=== PATIENT | male | born 1960 | race Caucasian/White ===

== ENCOUNTER 2021-05-18 10:14 | Emergency (ER) | payer OTHER ==
[~2021-05-18] VITALS: Ht 172.7 cm; Wt 67.3 kg
[2021-05-18 10:39] VITALS: BP 145/78; TEMP 97.8
[2021-05-18] MEDS ORDERED: PERCOCET 325 MG1 TA2 PO ×2 (13:11)
[2021-05-18 13:28] VITALS: PULSE 78
[2021-05-19] MEDS ORDERED: PERCOCET 325 MG1 TA2 PO (11:19)
== END 2021-05-18 13:28 | disposition home or self-care (01) ==
LOC: COL.ER 10:14
DX: S62.610A Displaced fracture of proximal phalanx of right index finger, initial encounter for closed fracture (principal); F17.200 Nicotine dependence, unspecified, uncomplicated; Z98.890 Other specified postprocedural states; W54.1XXA Struck by dog, initial encounter

== ENCOUNTER 2021-07-26 20:27 | Emergency (ER) | payer OTHER ==
[~2021-07-26] VITALS: Ht 175.3 cm; Wt 76.4 kg
[~2021-07-26 20:27] MED LIST: PERCOCET 325 MG1 TA2 PO
[2021-07-26 20:34] VITALS: BP 145/76; PULSE 90; TEMP 98.4
[2021-07-26] MEDS ORDERED: AMOXICILLIN 8751 TAB PO (21:27)
== END 2021-07-26 21:43 | disposition home or self-care (01) ==
LOC: COL.ER 20:27
DX: S61.412A Laceration without foreign body of left hand, initial encounter (principal); Z28.310 Unvaccinated for COVID-19; W26.0XXA Contact with knife, initial encounter

== ENCOUNTER 2022-12-29 16:08 | Emergency (ER) | payer OTHER ==
[~2022-12-29] VITALS: Ht 152.4 cm; Wt 61.4 kg
[~2022-12-29 16:08] MED LIST changes: +AMOXICILLIN 8751 TAB PO; +ASPIRIN 32325 MG/TAB PO; +ASPIRIN 81M81 MG/TA2 PO; +MOTRIN 600600 MG/TAB PO; +PROTONIX 40MG T40 MG PO; +ROXICODONE 55 MG/TAB PO; +SUBOXONE 8 MG-21 TAB SL; +TYLENOL 500MG500 MG PO
[2022-12-29 17:14] LABS: BASO % 0.2 % (0.0-2.0); EOS # 0.1 K/mm3 (0.0-0.7); GRAN # 7.2 K/mm3 (1.4-6.5); GRAN % 83.1 % (42.2-75.2); HEMOGLOBIN 12.1 g/dl (13.5-18.0); LYMPH # 0.9 K/mm3 (1.2-3.4); LYMPH % 10.1 % (20.0-51.0); MEAN CELL VOLUME 91 fl (80.0-100.0); MEAN CORPUSCULAR HEMOGLOBIN 32 pg (27-31); MEAN CORPUSCULAR HGB CONC 35 g/dl (33.0-37.0); MEAN PLATELET VOLUME 9.2 fl (7.4-10.4); MONO # 0.5 K/mm3 (0.1-0.6); MONO % 5.3 % (1.7-9.3); PLATELET COUNT 260 K/mm3 (130-400); RED BLOOD COUNT 3.81 M/mm3 (4.20-5.60); REDCELL DISTRIBUTION WIDTH-CV 12.8 % (11.5-14.5)
[2022-12-29 17:16] LABS: HEMATOCRIT 34.5 % (42.0-52.0)
[2022-12-29 17:38] LABS: ERYTHROCYTE SEDIMENTATION RATE 14 mm/hr (0-30)
[2022-12-29 17:45] LABS: BILIRUBIN,TOTAL 0.5 mg/dL (0.2-1.2); C-REACTIVE PROTEIN 0.16 mg/dL (0.00-0.50); CALCIUM 9.6 mg/dL (8.4-10.2); CREATININE, serum 1.84 mg/dL (0.72-1.25); POTASSIUM 4.1 mmol/L (3.5-4.5); TOTAL PROTEIN 7.3 gm/dL (6.2-8.1)
[2022-12-29 21:06] VITALS: BP 115/85; PULSE 18
[2022-12-29] MEDS ORDERED: DOXYCYCLINE HY100 MG PO (21:06)
== END 2022-12-29 21:06 | disposition home or self-care (01) ==
LOC: COL.ER 16:08
PROVIDERS: Emergency Medicine
DX: M25.552 Pain in left hip (principal); R21 Rash and other nonspecific skin eruption; R94.4 Abnormal results of kidney function studies; Z87.891 Personal history of nicotine dependence
CPT/HCPCS: J7030

== ENCOUNTER 2023-10-24 09:45 | Inpatient (IN) | payer OTHER ==
[2023-10-24] VITALS (14 sets, daily range): BP systolic 116–126; BP diastolic 59–67; PULSE 86–90; TEMP 99–100.7; O2SAT 85–100
[~2023-10-24] VITALS: Ht 175.3 cm; Wt 69.2 kg
[~2023-10-24 09:45] MED LIST changes: +DOXYCYCLINE HY100 MG PO
[2023-10-24] MEDS ORDERED: NS 1,000 ML IV ONE ×2 (10:30→13:15)
[2023-10-24 10:48] LABS: ARTERIAL BLD GAS O2 SATURATION 99.3 % (92-100); ARTERIAL BLD GAS TCO2 CT 26.5; ARTERIAL BLOOD GAS BASE EXCESS 0.6 (-2-2); ARTERIAL BLOOD GAS HCO3 25.3 meq/L (22-26); ARTERIAL BLOOD GAS PCO2 40.7 mmHg (35-45); ARTERIAL BLOOD GAS pH 7.41 (7.35-7.45)
[2023-10-24 10:49] LABS: ARTERIAL BLOOD GAS PO2 192.4 mmHg (80-100)
[2023-10-24 11:19] LABS: ALBUMIN 3.6 g/dL (3.4-4.8); BILIRUBIN,TOTAL 0.8 mg/dL (0.2-1.2); CALCIUM 9.5 mg/dL (8.4-10.2); CREATININE, serum 3.15 mg/dL (0.72-1.25); POTASSIUM 4.9 mEq/L (3.5-4.5); TOTAL PROTEIN 8.3 g/dl (6.2-8.1)
[2023-10-24 12:07] LABS: BASO % 0.2 % (0.0-2.0); EOS % 0.2 % (0.0-4.0); GRAN # 11.7 K/mm3 (1.4-6.5); GRAN % 88.4 % (42.2-75.2); HEMATOCRIT 41.2 % (42.0-52.0); HEMOGLOBIN 13.5 g/dl (13.5-18.0); LYMPH # 0.9 K/mm3 (1.2-3.4); LYMPH % 6.9 % (20.0-51.0); MEAN CELL VOLUME 96 fl (80.0-100.0); MEAN CORPUSCULAR HEMOGLOBIN 31 pg (27-31); MEAN CORPUSCULAR HGB CONC 33 g/dl (33.0-37.0); MEAN PLATELET VOLUME 10.2 fl (7.4-10.4); MONO # 0.5 K/mm3 (0.1-0.6); MONO % 3.8 % (1.7-9.3); PLATELET COUNT 319 K/mm3 (130-400); RED BLOOD COUNT 4.31 M/mm3 (4.20-5.60); REDCELL DISTRIBUTION WIDTH-CV 12.8 % (11.5-14.5)
[2023-10-24 12:45] LABS: URINE APPEARANCE CLOUDY (CLEAR/HAZY); URINE BLOOD 3+ (NEGATIVE); URINE COLOR YELLOW (YELLOW); URINE GLUCOSE NEGATIVE (NEGATIVE); URINE KETONE TRACE (NEGATIVE); URINE NITRATE NEGATIVE (NEGATIVE); URINE PROTEIN(semi-quant) 2+ (NEGATIVE)
[2023-10-24 13:00] LABS: TRICYCLIC ANTIDEPRESS URINE NEGATIVE (NEGATIVE)
[2023-10-24 13:15] LABS: URINE BACTERIA RARE /hpf (NONE SEEN); URINE RBC 0-2 /hpf (0-2)
[2023-10-24] MEDS ORDERED: Acetaminophen 325 MG TAB PO PRN (13:15)
[2023-10-24] MEDS ORDERED: NS 1,000 ML IV SCH (13:15)
[2023-10-24] MEDS ORDERED: Ondansetron 4 MG/2 ML VIAL IV PRN (13:15)
[2023-10-24 13:16] LABS: COLLECTION METHOD CLEAN CATCH
[2023-10-24] MEDS ORDERED: Heparin 5,000 UNITS/ML 1 ML VIAL SQ SCH (16:00)
--- NOTE | 2023-10-24 17:15 | NUR ---
RN RECIEVED REPORT FROM ED RN SOTO. PT TO UNIT AND MOVED TO ICU BED. INITIAL ASSESMENT SHOWED PT NEURO AAOX4 AND ABLE TO FOLLOW COMMANDS. PT CLEAR THROUGH ALL LUNG FEILDS. CARDIAC SHOWS PT IN NSR WITH NO DEFICITS. EXTRMITIES SLIGHTLY COLD TO TOUCH WITH SLIGHTLY DELAYED CAP REFIL. SKIN TURGO ELASTIC SLIGHTLY DELAYED. SKIN NOTED TO HAVE MANY SMALL WOUNDS. RLE NOTED TO BE REDDENED AND PAINFUILL TO TOUCH SMALL WOUND ON MEDIAL PORTION OF LEG. ON BILATERAL THIGHS PATIENT NOTED TO HAVE MANY HEALING AND HEALED WOUNDS APROX 1- 2 CM IN SIZE. MANY SCARS FROM PICKING NOTED. PT HAS SEVERAL WOUNDS ON LEFT ARM APROX 1- 2 CM IN SIZE WELL. ON PT LEFT FACE WOUNDS IN STRAGES OF HEALING ARE NOTED WELL. ALL WOUNDS ARE SMALL AND ARE IN DIFFRENT STAGES OF HEALING. BACK OF PATIENT VISULIZED NO SKIN BREAKDOWN NOTED. PT HAS FOEY IN PLACE FROM ED WITH CLEAR YELLOW DRAINAGE. PT HAS NOT HAD BM BUT IS PASSING GAS ALL BOWEL SOUNDS NORMOACTIVE. PT NOTED ON HEENT EXAM TO BE MISSING FRONT TEETH AND OTHER TEETH SEEM TO BE DECAYING. PT STATES THAT HE LIVES IN A "BAD PLACE" BUT HE IS NOT ABLE TO GIVE ADRESS OF LOCATION. PT STATES THAT HOME IS FREQUENTLY BROKEN INTO. PT STATES THAT HE HAS BROUGHT PHONE FROM HOME. THIS RN AND ANOTHER RN SEARCHED BELONGINGS WHICH INCLUDED BACKPACK CHAMNGE OF CLOTHING, TOOTHBRUSH, NIGHTLIGHT, SHOES, WALL SENIOR LINUX ENGINEER PAPERWOR, SANDALS, WORN CLOTHING IN ED AND TRANSFORMER ASSEMBLER AND WALLET WITH SMALL AMMOUNTS OF SPICER. NO PHONE IS NOTED IN PATIENT BELONGINGS. VERIFIED WITH ANOTHER RN AND THEN CONFIRMED THAT PT DID NOT HAVE A PHONE IN THE ED. ED RN SEARCHED ED ROOM WITH NEWS VIDEO EDITOR AND NO PHONE WAS FOUND.
[2023-10-24 18:02] LABS: CALCIUM 8.4 mg/dL (8.4-10.2); CREATININE, serum 2.43 mg/dL (0.72-1.25); POTASSIUM 4.5 mEq/L (3.5-4.5)
--- NOTE | 2023-10-24 19:49 | NUR ---
PT RESTING WITH EYES CLOSED. RESPIRATIONS EVEN AND UNLABORED. NO SIGN OF DISTRESS AT THIS TIME. CONTINUE PLAN OF CARE.
[2023-10-25] VITALS (719 sets, daily range): BP systolic 93–119; BP diastolic 54–68; PULSE 80–101; TEMP 98.8–101.4; O2SAT 53–100
--- NOTE | 2023-10-25 | NUR ---
PT RESTING QUIETLY. PT HAD A SNACK OF MILK, PEANUT BUTTER, CRACKERS, & PUDDING. PT IS CALM AND COOPERATIVE. PT HAS NOT REQUESTED ANYTHING FOR PAIN. PT STABLE ON ROUNDS. NO SIGN OF DISTRESS AT THIS TIME.
--- NOTE | 2023-10-25 06:12 | NUR ---
PT STABLE ON ROUNDS. NO SIGN OF DISTRESS. RESPIRATIONS EVEN AND UNLABORED. VITAL SIGNS STABLE. CONTINUE PLAN OF CARE.
[2023-10-25 06:25] LABS: BASO % 0.2 % (0.0-2.0); EOS # 0.1 K/mm3 (0.0-0.7); GRAN # 10.3 K/mm3 (1.4-6.5); GRAN % 85.5 % (42.2-75.2); HEMOGLOBIN 12.1 g/dl (13.5-18.0); LYMPH # 0.9 K/mm3 (1.2-3.4); LYMPH % 7.6 % (20.0-51.0); MEAN CELL VOLUME 94 fl (80.0-100.0); MEAN CORPUSCULAR HEMOGLOBIN 31 pg (27-31); MEAN CORPUSCULAR HGB CONC 33 g/dl (33.0-37.0); MEAN PLATELET VOLUME 9.5 fl (7.4-10.4); MONO # 0.6 K/mm3 (0.1-0.6); MONO % 5.1 % (1.7-9.3); PLATELET COUNT 239 K/mm3 (130-400); REDCELL DISTRIBUTION WIDTH-CV 12.9 % (11.5-14.5)
[2023-10-25 06:27] LABS: HEMATOCRIT 36.5 % (42.0-52.0)
[2023-10-25 06:45] LABS: ALBUMIN 2.4 g/dL (3.4-4.8); BILIRUBIN,TOTAL 0.4 mg/dL (0.2-1.2); CALCIUM 8.3 mg/dL (8.4-10.2); CREATININE, serum 1.6 mg/dL (0.72-1.25); POTASSIUM 4.2 mEq/L (3.5-4.5); TOTAL PROTEIN 6.1 g/dl (6.2-8.1)
--- NOTE | 2023-10-25 07:15 | NUR ---
THIS NURSE RECIEVED REPORT FROM MAC GREER. PATIENT IS RESTING COMFORTABLY IN BED, NO RESTLESSNESS NOTED. PATIENT'S VITAL SIGNS ARE WNL. PATIENT HAS AN 18G TO THE RIGHT BICEP WITH NORMAL SALINE RUNNING AT 150 ML/HR. JUNG IS IN PLACE WITH NO KINKS NOTED. BED IS IN LOW POSITION AND CALL LIGHT IS WITHIN THE PATIENT'S REACH.
--- NOTE | 2023-10-25 12:48 | NUR ---
SW met with patient to complete initial assessment for discharge planning. Patient shared that he lives in an "old, overgrown apartment building" in [place]. He states his apartment if full of asbestos and black mold in the tiles. Patient states he has a dog that someone will take care of while he is hospitalized. Patient lists a friend, Mahamed Lewis ([phone]) as his only contact. He denies having anyone assigned as DPOA. Patient states his two years ago and he became overwhelmed and depressed over her loss that he became addicted to drugs and lost contact with his daughter in [place]. Patient came to [place] "to get away from everything". Patient states he was seeing Dr. Dia Sawant at the [facility] but hasn't seen her in a long time. Patient states he uses [facility] or [place] pharmacy. Patient denies having any DME . Patient is covered by [employer] insurance. He denies having any income or job. He states he "dumpster dives" for food for the past six months. Patient voicing that he doesn't want to return to [place] near his daughter because he doesn't want to be a burden to them and thinks his identity has been stolen which affected his son in law's benefits. Patient states he walks wherever he goes. He states that Nadia at the [facility] office has been working with him to get HUD/VASH housing for him and activate his disabilty. Patient was offered community resources for food and alf. He refuses homeless alf due to not wanting to give up his dog. SW will attempt to contact [facility] at local [facility] to inquire about patient benefits. Discharge plan: TBD
--- NOTE | 2023-10-25 12:58 | NUR ---
Data: Spiritual Care visit attempted. RN with Patient. RN stated that Patient has had pain medication and will likely be unavailable for Media Intern's visit for several hours. Assessment: None at this time. Plan of Care: Chaplains will remain available as needed/requested while Patient is admitted to this hospital.
--- NOTE | 2023-10-25 18:23 | NUR ---
PATIENT HAS HAD AN UNEVENTFUL DAY. PATIENT HAS CONTINOUSLY SLEPT ALL DAY, EATING ALL OF HIS MEALS. PATIENT HAS NS AT 150 ML/HR AND ZOSYN AT 25 ML/HR INTO THE R BICEP IV. JUNG HAS NO KINKS AND IS DRAINING NECESSARY. BED IS IN LOW POSITION, BED ALARM IS ON, AND CALL LIGHT IS WITHIN PATIENT'S REACH.
--- NOTE | 2023-10-25 19:02 | NUR ---
PT NOW MEDICAL STATUS. REMAINS STABLE ON ROUNDS. IV ABX AND FLUIDS. CONTINUE PLAN OF CARE.
--- NOTE | 2023-10-25 20:45 | NUR ---
PT HAS TEMP 101.4. BLANKETS REMOVED AND TYLENOL GIVEN. RLE ELEVATED ON PILLOWS. NO IMPROVMENT OF CELLULITIS TO RLE NOTED UPON ASSESSMENT.
--- NOTE | 2023-10-25 20:55 | NUR ---
MEWS SCORE IS 5. PT IS ON VANCOMYCIN AND ZOSYN. WOUND AND BLOOD CULTURES PENDING.
[2023-10-25 23:00] LABS: HIV 1/2 Antibodies Non-Reactive; HIV-1p24 Antigen Non-Reactive
[2023-10-26] VITALS (245 sets, daily range): BP systolic 106–173; BP diastolic 58–74; PULSE 69–99; TEMP 97.7–100; O2SAT 69–100
--- NOTE | 2023-10-26 00:16 | NUR ---
PT AFEBRILE AT THIS TIME. MEWS SCORE 1. CONTINUE PLAN OF CARE.
[2023-10-26 05:58] LABS: ALBUMIN 2.1 g/dL (3.4-4.8); BILIRUBIN,TOTAL 0.3 mg/dL (0.2-1.2); C-REACTIVE PROTEIN 19.83 mg/dL (0.00-0.50); CALCIUM 8.4 mg/dL (8.4-10.2); CREATININE, serum 1.16 mg/dL (0.72-1.25); POTASSIUM 4.4 mEq/L (3.5-4.5); TOTAL PROTEIN 5.9 g/dl (6.2-8.1)
[2023-10-26 06:04] LABS: BASO % 0.2 % (0.0-2.0); EOS # 0.2 K/mm3 (0.0-0.7); EOS % 1.6 % (0.0-4.0); GRAN # 7.7 K/mm3 (1.4-6.5); GRAN % 79.2 % (42.2-75.2); HEMATOCRIT 37.8 % (42.0-52.0); HEMOGLOBIN 12.8 g/dl (13.5-18.0); LYMPH # 1.1 K/mm3 (1.2-3.4); LYMPH % 11.5 % (20.0-51.0); MEAN CELL VOLUME 92 fl (80.0-100.0); MEAN CORPUSCULAR HEMOGLOBIN 31 pg (27-31); MEAN CORPUSCULAR HGB CONC 34 g/dl (33.0-37.0); MEAN PLATELET VOLUME 9.3 fl (7.4-10.4); MONO # 0.7 K/mm3 (0.1-0.6); MONO % 6.8 % (1.7-9.3); PLATELET COUNT 247 K/mm3 (130-400); RED BLOOD COUNT 4.11 M/mm3 (4.20-5.60); REDCELL DISTRIBUTION WIDTH-CV 12.9 % (11.5-14.5)
--- NOTE | 2023-10-26 06:34 | NUR ---
PT SPIKED A TEMP OVERNIGHT OF 101.4. TYLENOL WAS GIVEN. PT IS AFEBRILE THIS MORNING. RLE REMAINS UNCHANGED. PT ALERT & ORIENTED. RESPIRATIONS EVEN AND UNLABORED. NO SIGN OF DISTRESS AT THIS TIME. CONTINUE PLAN OF CARE.
--- NOTE | 2023-10-26 06:47 | NUR ---
REPORT GIVEN TO MEDICAL RN. PT MOVING TO ROOM 314. WILL MOVE PATIENT AFTER SHIFT CHANGE.
--- NOTE | 2023-10-26 07:40 | NUR ---
Patient to room 314 by wheelchair from the ICU. A&Ox4. VSS. IV CDI. Linn intact. Patient ambulated to the bed with standby assist. Nurse oriented the patient to location, room and call light. No further needs expressed. Call light within reach
--- NOTE | 2023-10-26 10:52 | NUR ---
Patient moved to medical floor. SW met with patient to provide community resources for food coronel and meal opportunities, [facility] resources. SW also provided Medicare.gov list of SNFs for patient to review. Patient informed that he may require SNF placement due to his lack of physical ability. Patient voiced understanding and stated he would review list and provide SW with choices of facilities. Patient will require [place] authorization for SNF placement. Discharge plan: SNF vs Home
[2023-10-26] MEDS ORDERED: fentaNYL 50 MCG/ML 2 ML VIAL IV PRN (19:15)
[2023-10-27] VITALS (9 sets, daily range): BP systolic 106–133; BP diastolic 65–79; PULSE 85–92; TEMP 97.2–98.7
[2023-10-27 06:35] LABS: BASO % 0.4 % (0.0-2.0); EOS # 0.3 K/mm3 (0.0-0.7); EOS % 2.4 % (0.0-4.0); GRAN # 8.6 K/mm3 (1.4-6.5); GRAN % 75.5 % (42.2-75.2); HEMOGLOBIN 12.1 g/dl (13.5-18.0); LYMPH # 1.4 K/mm3 (1.2-3.4); LYMPH % 11.9 % (20.0-51.0); MEAN CELL VOLUME 92 fl (80.0-100.0); MEAN CORPUSCULAR HEMOGLOBIN 31 pg (27-31); MEAN CORPUSCULAR HGB CONC 33 g/dl (33.0-37.0); MEAN PLATELET VOLUME 9.7 fl (7.4-10.4); MONO % 8.5 % (1.7-9.3); PLATELET COUNT 312 K/mm3 (130-400); RED BLOOD COUNT 3.95 M/mm3 (4.20-5.60); REDCELL DISTRIBUTION WIDTH-CV 12.7 % (11.5-14.5)
[2023-10-27 06:47] LABS: HEMATOCRIT 36.4 % (42.0-52.0)
[2023-10-27 07:06] LABS: ALBUMIN 2.3 g/dL (3.4-4.8); BILIRUBIN,TOTAL 0.2 mg/dL (0.2-1.2); CALCIUM 9.5 mg/dL (8.4-10.2); CREATININE, serum 1.07 mg/dL (0.72-1.25); TOTAL PROTEIN 6.7 g/dl (6.2-8.1)
--- NOTE | 2023-10-27 07:15 | NUR ---
Patient laying in bed sleeping, easily awakened with verbal command. A&Ox4. VSS. IV CDI. Linn intact. Nursing staff encouraging elevating rt leg on pillow. Call light within reach
--- NOTE | 2023-10-27 11:01 | NUR ---
Linn removed, tip intact. Pericare provided before and after. Patient tolerated well. Patient instructed to call nursing staff when voided. Patient verbalized an understanding. Call light within reach
--- NOTE | 2023-10-27 12:27 | NUR ---
sheet metal duct worker supervisor met with patient to follow up on options for SNF. Patient stated he could not read the form as he did not have his glasses. SW verbally went over the options via the Medicare.gov. Patient is open to local facilities that accept VA insurance. Patient stated he walked to the hospital so he is able to walk. SW explained he needs to be getting up with PT to show the facilities that she would be sending to that he is able to be mobile. Patient understood. Patient stated he was working with [facility] but his landlord informed them that he has been allowing homeless people to stay at his home which he denies. Patient stated since his landlord told him that they declined to continue to work with him. SW secure emailed referral to [facility], [facility]. SW also faxed referral to [facility] as they have had issues with obtaining referral via email lately. Discharge plan: SNF pending accepting facility
[2023-10-28] VITALS (7 sets, daily range): BP systolic 108–126; BP diastolic 65–76; PULSE 79–82; TEMP 97.5–98.3
--- NOTE | 2023-10-28 06:50 | NUR ---
appears to be sleeping, bedside shift report received from MAC Sanchez
--- NOTE | 2023-10-28 08:20 | NUR ---
sitting up in recliner, full assessment completed, see interventions for further info, right lower extremity, red and edematous, has 2, 1cm scab areas to inner side of lower ext, DEAN Ledesma from wound care in to see patient,
--- NOTE | 2023-10-28 08:30 | NUR ---
awake resting in bed with lights off, orrfered but declines breakfast at this time
--- NOTE | 2023-10-28 10:30 | NUR ---
c/o pain to right lower leg and is moaning and grimacing, medicated with tylenol 650mg po, assisted back into bed and will try to rest, an addition to the assessment note he also has about a 1cm scabbed area to left side of nose an small scabbed area to left mormon area
--- NOTE | 2023-10-28 11:02 | NUR ---
[facility] declined referral.
--- NOTE | 2023-10-28 11:02 | NUR ---
Clinic Clerk faxed updates to [facility] and [employer] [facility] for review.
--- NOTE | 2023-10-28 11:04 | NUR ---
JIMMY attended clinical rounds. Patient has been referred for SNF placement. SW has received denials from [facility], [facility] and [facility]. SW visited with patient who states he is "good to just go home." Patient states he's been up walking in room and is more concerned about his dog. JIMMY reviewed case with Director Oriana Elias who states patient cannot be placed due to active drug abuse and history of noncompliance. JIMMY called Dr. Petrona Muhammad to notify of SNF denials. She plans to discharge patient today to home with HH. JIMMY will arrange transportation home and contact [facility] for HH request. Discharge plan: Home
[2023-10-28 12:12] LABS: HEMOGLOBIN 11.1 g/dl (13.5-18.0); MEAN CELL VOLUME 93 fl (80.0-100.0); MEAN CORPUSCULAR HEMOGLOBIN 32 pg (27-31); MEAN CORPUSCULAR HGB CONC 34 g/dl (33.0-37.0); MEAN PLATELET VOLUME 11.6 fl (7.4-10.4); PLATELET COUNT 366 K/mm3 (130-400); RED BLOOD COUNT 3.51 M/mm3 (4.20-5.60); REDCELL DISTRIBUTION WIDTH-CV 13.2 % (11.5-14.5)
[2023-10-28 12:15] LABS: HEMATOCRIT 32.6 % (42.0-52.0)
[2023-10-28 13:01] LABS: BAND 7 % (0-10); EOSINOPHIL 4 % (0-4); LYMPHOCYTE 18 % (20.0-51.0); NEUTROPHILS 67 % (42.0-75.2); PLATELET ESTIMATE NORMAL (NORMAL)
[2023-10-28] MEDS ORDERED: AMOXICILLIN 8751 TAB PO (14:04)
--- NOTE | 2023-10-28 14:40 | NUR ---
JIMMY spoke with Rosana at [facility]. She is familiar with patient. Discussed patient's hospitalization and lack of ability to secure SNF for patient. Rosana asked for discharge and clinicals to be faxed to her at discharge. DC orders state home self care. JIMMY faxed orders and clinicals to Rosana. MAC Curiel notified this SW that patient needs transportation to home. She will let JIMMY know when patient is ready for transportation. Discharge plan: Home
--- NOTE | 2023-10-28 15:32 | NUR ---
JIMMY received call from APS worker inquiring if patient is still hospitalized. She reports that she is coming to hospital to screen patient. She asked that patient be given application for medicaid and food stamps to start. JIMMY contacted Yasemin, Financial counselor, to request a visit for application processes. Yasemin stated she would begin application with patient. Discharge plan: Home
--- NOTE | 2023-10-28 15:38 | NUR ---
resting in bed, financial planner in to see patient
--- NOTE | 2023-10-28 16:20 | NUR ---
discharge instructions given to patient, verbalizes understanding
--- NOTE | 2023-10-28 16:29 | NUR ---
MAC Curiel notified JIMMY that patient is ready for transportation. JIMMY Quiroga submitted Uber request for transport to patient's home address.
--- NOTE | 2023-10-28 16:35 | NUR ---
discharged per WC
== END 2023-10-28 16:35 | disposition home or self-care (01) | DRG 871 ==
LOC: COL.ER 09:45 → MEDICAL 12:52 → ICU 12:52 → MEDICAL 10-26 07:41
PROVIDERS: Internal Medicine; Nurse Practitioner Family; Physician Assistant; ADMIT Internal Medicine
DX: A41.9 Sepsis, unspecified organism (principal); J96.01 Acute respiratory failure with hypoxia; L03.115 Cellulitis of right lower limb; N17.9 Acute kidney failure, unspecified; E87.20 Acidosis, unspecified; F15.10 Other stimulant abuse, uncomplicated; B95.61 Methicillin susceptible Staphylococcus aureus infection as the cause of diseases classified elsewhere; B95.0 Streptococcus, group A, as the cause of diseases classified elsewhere; E87.5 Hyperkalemia; N18.9 Chronic kidney disease, unspecified; R65.20 Severe sepsis without septic shock; J43.9 Emphysema, unspecified; Z88.6 Allergy status to analgesic agent; Z88.5 Allergy status to narcotic agent; Z88.8 Allergy status to other drugs, medicaments and biological substances; Z87.891 Personal history of nicotine dependence; Z79.82 Long term (current) use of aspirin; Z79.899 Other long term (current) drug therapy; Z86.73 Personal history of transient ischemic attack (TIA), and cerebral infarction without residual deficits
CPT/HCPCS: J1644; J2543; J3010; J3370; J7030; J7050